=== PATIENT | female | born 1960 | race Caucasian/White ===

== ENCOUNTER 2022-08-27 06:08 | Day surgery (SDC) | payer OTHER ==
[2022-08-20 12:18] VITALS: BMI 28.3
[2022-08-27] MEDS ORDERED: PROPOFOL 20 ML ONE (07:05)
[2022-08-27] MEDS ORDERED: MIDAZOLAM HCL 2 MG/2 ML SINGLE DOSE VIAL ONE ×2 (07:05→07:54)
[2022-08-27] MEDS ORDERED: DEXAMETHASONE SOD PHOSPHATE/PF 10 MG/ML SDV ONE (07:16)
[2022-08-27] MEDS ORDERED: BUPIVACAINE HCL/EPINEPHRINE/PF 30 ML VIAL IJ ONE (07:16)
[2022-08-27] MEDS ORDERED: BUPIVACAINE HCL/PF 0.5% (5 MG/ML) 30 ML VIAL IJ ONE (07:16)
[2022-08-27] MEDS ORDERED: EPINEPHrine 1:1,000 1,000 MCG/ML ML ONE (07:16)
[2022-08-27] MEDS ORDERED: ceFAZolin SODIUM 1 GM VIAL ONE (08:25)
[2022-08-27] MEDS ORDERED: SODIUM CHLORIDE 0.9% P/F 10 ML VIAL IJ ONE (08:25)
[2022-08-27] MEDS ORDERED: ONDANSETRON 4 MG/2 ML VIAL ONE (08:25)
[2022-08-27] MEDS ORDERED: PHENYLEPHRINE HCL 10 MG/1 ML SINGLE DOSE VIAL ONE (08:25)
[2022-08-27] MEDS ORDERED: oxyCODONE HCL 5 MG TABLET PO PRN (09:08)
[2022-08-27] MEDS ORDERED: ONDANSETRON 4 MG/2 ML VIAL IVPUSH PRN (09:08)
[2022-08-27] MEDS ORDERED: ACETAMINOPHEN 1000 MG/100 ML BAG IVPB ONE (09:09)
[2022-08-27] MEDS ORDERED: LACTATED RINGERS SOLUTION 1,000 ML IV SCH (09:15)
[2022-08-27] MEDS ORDERED: ceFAZolin 2 GRAM PREMIX BAG IVPB ONE (10:00)
[2022-08-27 11:04] VITALS: BP 120/80; PULSE 65; RESP 15; TEMP 97
== END 2022-08-27 10:30 | disposition home or self-care (01) ==
LOC: FASU 06:08
PROVIDERS: ATTEND Orthopaedic Surgery
PROC: 0LS44ZZ Reposition Left Upper Arm Tendon, Percutaneous Endoscopic Approach (ICD-10-PCS; principal; 2022-08-27 08:06)
PROC: 0RBK4ZZ Excision of Left Shoulder Joint, Percutaneous Endoscopic Approach (ICD-10-PCS; 2022-08-27 08:06)
DX: S46.012D Strain of muscle(s) and tendon(s) of the rotator cuff of left shoulder, subsequent encounter (principal); M75.22 Bicipital tendinitis, left shoulder; M75.52 Bursitis of left shoulder; M65.822 Other synovitis and tenosynovitis, left upper arm; S43.432D Superior glenoid labrum lesion of left shoulder, subsequent encounter; M19.012 Primary osteoarthritis, left shoulder; M75.02 Adhesive capsulitis of left shoulder; X58.XXXD Exposure to other specified factors, subsequent encounter
CPT/HCPCS: 88304-TC; 94760; C1713